=== PATIENT | male | born 1985 | race Caucasian/White ===

== ENCOUNTER 2019-08-20 17:57 | Emergency (ER) | payer MEDICAID ==
[~2019-08-20] VITALS: Ht 170.2 cm; Wt 77.1 kg
[2019-08-20 18:07] VITALS: Ht 170.2 cm; Wt 77.1 kg
[2019-08-20 18:53] LABS: BASOPHIL % 0.2 % (0-2); PLATELET COUNT 357 x10^3mcL (130-400); RED CELL DISTRIBUTION WIDTH 13.5 % (11.5-14.5)
[2019-08-20 19:00] LABS: CALCIUM 9.2 mg/dL (8.5-10.1); CARBON DIOXIDE 32.9 mmol/L (21-32); CHLORIDE SERUM 102 mmol/L (98-107); CREATININE SERUM 0.6 mg/dL (0.7-1.3); GFR1 > 60 mL/min; GLUCOSE SERUM 108 mg/dL (74-106); POTASSIUM SERUM 3.6 mmol/L (3.5-5.1); SODIUM SERUM 140 mmol/L (136-145)
[2019-08-20 19:06] LABS: ALBUMIN 3.8 g/dL (3.4-5.0); ALKALINE PHOSPHATASE 64 U/L (46-116); ALT/SGPT 50 U/L (16-63); AST/SGOT 21 U/L (15-37); BILIRUBIN TOTAL 0.78 mg/dL (0.20-1.00)
[2019-08-20 19:45] VITALS: BP 123/91
[2019-08-20 21:14] LABS: AMPHETAMINE QUAL UR NONE DETECTED (See below)
== END 2019-08-20 19:45 | disposition home or self-care (01) ==
LOC: ED 17:57
PROVIDERS: Emergency Medicine
DX: R07.89 Other chest pain (principal); I10 Essential (primary) hypertension
CPT/HCPCS: 36415; Q0092